=== PATIENT | female | born 1980 | race Hispanic/Latino ===

== ENCOUNTER 2018-01-09 16:15 | Emergency (ER) | payer OTHER ==
[~2018-01-09] VITALS: Ht 149.9 cm; Wt 56.0 kg
[~2018-01-09 16:15] MED LIST: AMOXICILLIN500 MG PO; MOTRIN800 MG PO; TYLENOL # 31 TAB PO
[2018-01-09] MEDS ORDERED: ALL DAY10 MG PO (16:33)
[2018-01-09] MEDS ORDERED: FLONASE AL50 MCG/ACT NAB (16:33)
[2018-01-09 16:46] VITALS: BP 121/77
== END 2018-01-09 16:46 | disposition home or self-care (01) | DRG 156 ==
LOC: ED 16:15
DX: H91.93 Unspecified hearing loss, bilateral (principal)

== ENCOUNTER 2021-10-16 03:51 | Emergency (ER) | payer OTHER ==
[~2021-10-16] VITALS: Ht 149.9 cm; Wt 59.0 kg
[~2021-10-16 03:51] MED LIST changes: +ALL DAY10 MG PO; +FLONASE AL50 MCG/ACT NAB
[2021-10-16] MEDS ORDERED: ZITHROMAX250 MG PO (05:26)
[2021-10-16 06:06] VITALS: BP 117/70
== END 2021-10-16 06:07 | disposition home or self-care (01) | DRG 179 ==
LOC: ED 03:51
DX: U07.1 COVID-19 (principal)

== ENCOUNTER 2023-02-07 16:43 | Emergency (ER) | payer OTHER ==
[~2023-02-07] VITALS: Ht 149.9 cm; Wt 54.4 kg
[~2023-02-07 16:43] MED LIST changes: +ZITHROMAX250 MG PO
[2023-02-07 18:35] LABS: BASO% 0.5 % (0-3); EOS% 1.7 % (0-8); HEMATOCRIT 42.3 % (37.0-47.0); IMMATURE GRANULOCYTES 0.1 % (0.0-5.0); LYMPH% 27.7 % (15-41); MEAN CELL VOLUME 96.6 fL CALC (80.0-100.0); MEAN CORPUSCULAR HGB CONC 33.1 g/dL CAL (32.0-36.0); NEUT# 5.94 thou/uL (2.00-7.15); RED BLOOD COUNT 4.38 mill/uL (4.20-5.60); RED CELL DISTRI WIDTH 11.6 % (11.5-15.5)
[2023-02-07 18:46] LABS: ALBUMIN 4.5 g/dL (3.2-5.0); ALKALINE PHOSPHATASE 108 u/l (38-126); ANION GAP 13 (6-22 (CALC)); BUN 15 mg/dL (7-17); BUN/CREATININE RATIO 18 (12-20 (CALC)); CARBON DIOXIDE 23 mmol/l (22-30); CHLORIDE 107 mmol/l (95-108); CREATININE 0.8 mg/dL (0.5-1.0); GFR FOR AFR.AMER. > 60 ML/MIN (>=60 (CALC)); GFR OTHER RACES > 60 ML/MIN (>=60 (CALC)); POTASSIUM 3.7 mmol/l (3.5-5.1); SGOT/AST 29 u/l (14-36); SODIUM 139 mmol/l (137-146); TOTAL PROTEIN 7.7 g/dL (6.3-8.2)
[2023-02-07 18:47] LABS: URINE BILIRUBIN - DIPSTICK NEGATIVE (NEGATIVE); URINE BLOOD DIPSTICK NEGATIVE (NEGATIVE); URINE COLOR YELLOW; URINE GLUCOSE - DIPSTICK NEGATIVE (NEGATIVE); URINE KETONE NEGATIVE (NEGATIVE); URINE LEUK ESTERASE SMALL (NEGATIVE); URINE NITRITE - DIPSTICK NEGATIVE (Negative); URINE PROTEIN - DIPSTICK NEGATIVE (NEG-TRACE); URINE UROBILINOGEN - DIPSTICK 0.2 E.U./dL (0.2)
[2023-02-07 18:57] LABS: URINE RBC 0-2 RBC/hpf (0-5); URINE SQUAMOUS EPITHELIAL CELL FEW EPI/hpf (0-FEW); URINE WBC 0-2 WBC/hpf (0-5)
[2023-02-07] MEDS ORDERED: MEDDOSEPAK PO (21:20)
[2023-02-07 21:26] VITALS: BP 122/78
== END 2023-02-07 21:20 | disposition left against medical advice (07) | DRG 552 ==
LOC: ED 16:43
PROVIDERS: Emergency Medicine
DX: M51.27 Other intervertebral disc displacement, lumbosacral region (principal)